=== PATIENT | female | born 1970 | race Caucasian/White ===

== ENCOUNTER 2024-05-21 11:28 | Emergency (ER) | payer BC ==
[~2024-05-21] VITALS: Ht 157.5 cm; Wt 74.8 kg
[2024-05-21 11:30] VITALS: BP 106/61; PULSE 70; RESP 16; TEMP 98.6
--- NOTE | 2024-05-21 11:49 | ERN ---
ED Note History of Present Illness Stated Complaint: RECTAL PAIN, POSSIBLY R/T DIVERTICULITIS Chief Complaint: Other Problems Time Seen by MD: 11:41 Dictation: PATIENT IS A 54-YEAR-OLD FEMALE COMING IN TODAY WITH COMPLAINTS LEFT LOWER QUADRANT AND RECTAL PAIN SHE HAS HAD FOR 4-5 MONTHS. NO FEVER NO CHILLS NO NAUSEA VOMITING. STATES SHE SAW HER HYDRAULIC DESIGN ENGINEER DOCTOR, DR. CHAVIRA WHO ORDERED A CT OF THE ABDOMEN ON 05/15 THAT DEMONSTRATED POSSIBLE PROCTITIS AND DIVERTICULAR DISEASE. SHE HAS NOT HEARD BACK FROM HER HYDRAULIC DESIGN ENGINEER DOCTOR AND NO PAIN MANAGEMENT WAS PRESCRIBED. SHE STATES SHE DOES USE DR. [facility] FROM [place] [facility] FOR GI ISSUES HOWEVER HAS NOT SEEN THEM RECENTLY Allergies: Coded Allergies: Penicillins (Unverified Allergy, Unknown, 05/21/24) acetaminophen (Unverified Allergy, Unknown, 05/21/24) propoxyphene (Unverified Allergy, Unknown, 05/21/24) Past Medical History Past Medical History: Diverticulitis, High Cholesterol, Heart Disease, Hypothyr oid Additional Past Medical Hx: ATRIAL TACHYCARDIA Surgical History: Hysterectomy, Other Surgical History Other: KNEE, SINUS History: Not Applicable RN Note Reviewed/Agreed w/PFSH: Yes Review of System Dictation CONSTITUTIONAL: NEGATIVE EXCEPT FOR HPI HEAD/FACE: NEGATIVE EXCEPT FOR HPI EENT: NEGATIVE EXCEPT FOR HPI RESPIRATORY: NEGATIVE EXCEPT FOR HPI GASTROINTESTINAL/ABDOMINAL: NEGATIVE EXCEPT FOR HPI LEFT LOWER QUADRANT/RECTAL PAIN GENITOURINARY: NEGATIVE EXCEPT FOR HPI MUSCULOSKELETAL: NEGATIVE EXCEPT FOR HPI INTEGUMENTARY: NEGATIVE EXCEPT FOR HPI NEUROLOGICAL/PSYCH: NEGATIVE EXCEPT FOR HPI HEMATOLOGIC/LYMPHATIC: NEGATIVE EXCEPT FOR HPI ALL SYSTEMS NEGATIVE, EXCEPT NOTED ABOVE. 13 POINT REVIEW OF SYSTEMS ASSESSED AND ALL NEGATIVE EXCEPT FOR ABOVE. Initial Vital Sign VS Vital Signs Date Time Temp Pulse Resp B/P (MAP) Pulse Ox O2 Delivery O2 Flow Rate FiO2 05/21/24 11:30 98.6 70 16 106/61 97 Room Air 0 Physical Exam Dictation VITAL SIGNS REVIEWED GENERAL APPEARANCE: ALERT, ORIENTED X 3, MODERATE ACUTE DISTRESS, WELL DEVELOPED, NOURISHED. HEAD AND FACE: NON-TRAUMATIC. EYES: PERRL, PINK CONJUNCTIVAS, EYELID NO TRAUMA, ANTERIOR CHAMBER WITH ARCUS SENILIS. EARS: PINNAS INTACT AND NO SIGNS OF TRAUMA OR ERYTHEMA EAR CANALS CLEAR AND NO DISCHARGE TM NO ERYTHEMA NOSE: NO DISCHARGE, NO BLEEDING. OROPHARYNX: MOUTH NORMAL, TONGUE PINK, PHARYNX CLEAR,NO ERYTHEMA, TONSILS NO EXUDATES, NO ABSCESSES NOTED, MUCOUS MEMBRANE MOIST NECK: SUPPLE, NON-TENDER, NO THYROMEGALY, NO MASSES, NO JVD, NO BRUITS BREAST:DEFERRED CHEST:NO TENDERNESS, NO CREPITUS, NO PARADOXICAL MOVEMENT, NO RETRACTIONS LUNGS:CLEAR, WELL-VENTILATED, SYMMETRIC, NO RALES, NO WHEEZING, NO RHONCHI, NO STRIDOR, GOOD BREATH SOUNDS BILATERALLY HEART: REGULAR RATE, REGULAR RHYTHM, NO MURMUR, NO GALLOPS VASCULAR: NO PERIPHERAL EDEMA, ABDOMEN: SOFT, POSITIVE BOWEL SOUNDS, NONDISTENDED, NO GUARDING, LEFT LOWER QUADRANT TENDERNESS, NO REBOUND, NO MASSES NO HEPATOMEGALY, NO SPLENOMEGALY, NO VIERA'S SIGN, NO HERNIAS. RECTAL: DEFERRED GENITAL: DEFERRED NEUROLOGICAL: NORMAL SPEECH, MOTOR FUNCTION INTACT, SENSORY FUNCTION INTACT MUSCULOSKELETAL: NECK NONTENDER, FULL RANGE OF MOTION, BACK NONTENDER, FULL RANGE OF MOTION, EXTREMITIES: NONTENDER, FULL RANGE OF MOTION SKIN: COLOR PINK, DRY, NO TURGOR, NO RASH, NO LACERATIONS, NO ABRASIONS, NO CONTUSIONS. LYMPHATIC: DEFERRED Results (Laboratory/Radiology) Laboratory/Radiology Laboratory Tests Test 05/21/24 12:18 05/21/24 12:20 White Blood Count 6.6 K/uL (4.8-10.8) Red Blood Count 3.75 MIL/uL (4.00-5.50) L Hemoglobin 10.6 g/dL (12.0-16.0) L Hematocrit 33.7 % (36-48) L Mean Corpuscular Volume 89.9 fL (79-99) Mean Corpuscular Hemoglobin 28.3 pg (27.0-33.0) Mean Corpuscular Hemoglobin Concent 31.5 g/dL (32.0-36.0) L Red Cell Distribution Width 12.7 % (11.0-15.5) Platelet Count 253 K/uL (130-400) Mean Platelet Volume 9.8 fL (7.5-10.5) Immature Granulocyte % (Auto) 0.2 % (0-1) Neutrophils (%) (Auto) 65.2 % (40.0-77.0) Lymphocytes (%) (Auto) 24.6 % (21.0-51.0) Monocytes (%) (Auto) 6.3 % (3.0-13.0) Eosinophils (%) (Auto) 2.9 % (0.0-8.0) Basophils (%) (Auto) 0.8 % (0.0-5.0) Neutrophils # (Auto) 4.3 K/uL (1.8-7.7) Lymphocytes # (Auto) 1.6 K/uL (1.0-4.8) Monocytes # (Auto) 0.4 K/uL (0.1-1.0) Eosinophils # (Auto) 0.19 K/uL (0.00-0.70) Basophils # (Auto) 0.05 K/uL (0.00-0.20) Absolute Immature Granulocyte (auto 0.01 K/uL (0-1) Nucleated Red Blood Cells 0.0 % (0.0-0.19) Sodium Level 143 mmol/L (136-145) Potassium Level 4.3 mmol/L (3.5-5.1) Chloride Level 105 mmol/L (101-111) Carbon Dioxide Level 32 mmol/L (21-32) Blood Urea Nitrogen 7 mg/dL (7-18) Creatinine 1.0 mg/dL (0.5-1.0) Glomerular Filtration Rate Calc 67 mL/min (>90) Random Glucose 113 mg/dL (70-105) H Total Calcium 9.1 mg/dL (8.5-10.1) Lipase 47 U/L (16-77) Urine Color LIGHT-YELLOW (YELLOW) Urine Appearance CLEAR (CLEAR) Urine pH 6.5 (5.0-8.0) Urine Specific [place] 1.010 (1.001-1.031) Urine Protein NEGATIVE mg/dL (NEGATIVE) Urine Glucose (UA) NEGATIVE mg/dL (NEGATIVE) Urine Ketones NEGATIVE mg/dL (NEGATIVE) Urine Occult Blood MODERATE (NEGATIVE) H Urine Nitrate NEGATIVE (NEGATIVE) Urine Bilirubin NEGATIVE mg/dL (NEGATIVE) Urine Urobilinogen 0.2 mg/dL (0.2-1.0) Urine Leukocyte Esterase NEGATIVE Lexi/uL Urine RBC 11-25 /HPF (0-1) H Urine WBC 2-5 /HPF (0-1) H Urine Squamous Epithelial Cells RARE /HPF (0-2) Urine Bacteria FEW /HPF (None Seen) CT ABDOMEN/PELVIS W/CONTRAST REASON: LEFT LOWER QUADRANT AND RECTAL PAIN, FOUR MONTHS COMPARISON: None. TECHNIQUE: Images are obtained from lung bases to the symphysis pubis following IV contrast, 100 cc Omnipaque 350. FINDINGS: Lung bases are clear. There are no focal liver lesions. There are normal-appearing kidneys.. Spleen and pancreas appear unremarkable. The gallbladder appears normal as well. Bowel loops appear unremarkable. This includes normal appearance of the appendix There is no evidence of free fluid or intraperitoneal air. There are no focal fluid collections. Aorta and retroperitoneum appear normal as do pelvic soft tissue structures. The anterior abdominal wall is intact. Osseous structures appear unremarkable. IMPRESSION: 1. Negative postcontrast CT abdomen and pelvis. Labs Reviewed?: Yes ED Course ED Course Orders Procedure Category Date Status Time Cbc With Differential LAB 05/21/24 Complete 11: Urinalysis Profile LAB 05/21/24 Complete 11:46 Ct Abdomen/Pelvis CT 05/21/24 Resulted W/Contrast 11:46 0.9%Nacl 1000ml (Ns PHA 05/21/24 Complete 1000ml) 12:00 Morphine 2mg Syg PHA 05/21/24 Complete (Morphine 2mg Syg) 12:00 Ondansetron 4mg Inj PHA 05/21/24 Complete (Zofran 4mg Inj) 12:00 Lipase LAB 05/21/24 Complete 11:46 Basic Metabolic Panel LAB 05/21/24 Complete 11:46 Iohexol (Omnipaque) PHA 05/21/24 Complete 13:08 Methylprednisolone PHA 05/21/24 Complete Succ 125mg (Solu-Medr 14:30 Ketorolac PHA 05/21/24 Verified Tromethamine 30mg/Ml 15:00 Current Medications Medications (Trade) Dose Ordered Sig/Mt Route PRN Reason Start Time Stop Time Status Last Admin Dose Admin Iohexol (Omnipaque) 35,000 mg STK-MED ONCE IV 05/21/24 13:08 05/21/24 13:08 DC Methylprednisolone Sodium Succinate (Solu-medROL 125MG) 125 mg ONCE ONCE IVP 05/21/24 14:30 05/21/24 14:31 DC 05/21/24 14:25 Morphine Sulfate (morPHINE 2MG SYG) 2 mg ONCE ONCE IVP 05/21/24 12:00 05/21/24 12:07 DC 05/21/24 13:09 Ondansetron HCl (zoFRAN 4MG INJ) 4 mg ONCE ONCE IVP 05/21/24 12:00 05/21/24 12:07 DC 05/21/24 13:01 Sodium Chloride 1,000 ml @ 0 mls/hr ONCE ONCE IV 05/21/24 12:00 05/21/24 12:07 DC 05/21/24 13:01 Vital Signs Date Time Temp Pulse Resp B/P (MAP) Pulse Ox O2 Delivery O2 Flow Rate FiO2 05/21/24 11:30 98.6 70 16 106/61 97 Room Air 0 1435, PATIENT STATES HER PAIN IS MARKEDLY REDUCED HOWEVER WOULD LIKE SOMETHING MORE BEFORE SHE GOES HOME SHE IS AWARE THAT THIS IS AN INFLAMMATORY PROCTITIS WE WILL BE TREATED WITH MESALAMINE AND HYDROCORTISONE SUPPOSITORIES AND WAS ADVISED TO SEE HER DOCTOR TESTED [facility] Medical Decision Making MDM MDM: DIFFERENTIAL DIAGNOSIS: DIVERTICULITIS/IBS/ULCERATIVE COLITIS/PROCTITIS/URINARY TRACT INFECTION/ELECTROLYTE IMBALANCE/DEHYDRATION RATIONALE: TESTS CONSIDERED AND ORDERED SECONDARY TO SHARED DECISION MAKING INCLUDE: RADIOLOGY/LABS PREVIOUS OUTSIDE RECORDS REVIEWED: OLD ER VISITS. REVIEWED RISK OF COMPLICATION AND/OR MORBIDITY OR MORTALITY OF PATIENT MANAGEMENT: NONE MEDICATIONS-PER MEDICATION RECONCILIATION SEE NURSE'S NOTES NEED FOR HOSPITALIZATION: PATIENT DOES NOT MEET CRITERIA FOR HOSPITALIZATION. NO NEED FOR EMERGENCY MAJOR/MINOR SURGERY: NO THERE ARE NO SOCIAL CONCERNS WITH THIS PATIENT. PRESCRIPTION DRUG MANAGEMENT MESALAMINE/HYDROCORTISONE SUPPOSITORIES/TYLENOL THREE PRESCRIPTIONS WILL INCLUDE SYMPTOMATIC CARE PATIENT'S PRIOR EXTERNAL MEDICAL RECORDS FROM OTHER ER VISITS WERE REVIEWED BY ME INDICATED. PRIOR TESTING AND RESULTS FROM PREVIOUS VISITS WERE REVIEWED. PRIOR TESTS WERE TAKEN INTO ACCOUNT WITH MEDICAL DECISION MAKING AND RESOURCE UTILIZATION, INDEPENDENT HISTORIAN/HISTORIANS WERE USED TO OBTAIN COMPLETE MEDICAL HISTORY. I INDEPENDENTLY INTERPRETED THE TEST THAT WERE PERFORMED, RESULTS WERE REVIEWED BY ME AND CONSIDERED FINDINGS ON RADIOLOGY IF ORDERED. MEDICAL MANAGEMENT AND EXAMINATION INTERPRETATION DISCUSSIONS WERE HAD BY ME WITH OTHER QUALIFIED HEALTHCARE PROFESSIONALS INDICATED FOR THE PATIENT'S CARE. DX & DISP Disposition: Discharge Departure Impression: Primary Impression: Acute proctitis Condition: Stable Scripts Ibuprofen (Ibuprofen) 800 Mg Tablet 800 MG PO Q6H PRN for PAIN, #30 TAB Prov: PING FLORES SUGAR GRINDER 05/21/24 Hydrocortisone Acetate (Hydrocortisone Acetate) 25 Mg Supp.rect 1 SUPP MA BID for 14 Days, #28 SUPP 0 Refills Prov: PING FLORES NP 05/21/24 Mesalamine (Mesalamine) 800 Mg Tablet.dr 1 TAB PO TID for 10 Days, #30 TAB 0 Refills Prov: PING FLORES NP 05/21/24 Additional Instructions: FOLLOW-UP WITH PRIMARY CARE PROVIDER IN 1 TO 2 DAYS. TAKE MEDICATIONS DIRECTED HERE IN THE EMERGENCY ROOM. OKAY TO CONTINUE HOME MEDICATIONS UNLESS OTHERWISE DISCUSSED DURING YOUR VISIT IN THE EMERGENCY ROOM TODAY. RETURN TO YOUR NEAREST EMERGENCY ROOM IF SYMPTOMS WORSEN OR IF THERE IS NO IMPROVEMENT. CALL 911 IF YOU NEED IMMEDIATE ASSISTANCE. TAKE TYLENOL OR MOTRIN [id number] NEEDED AND IF NO CONTRAINDICATIONS ARE PRESENT. INCREASE ORAL HYDRATION. A WOUND CULTURE OR URINE CULTURE WAS ORDERED HERE IN THE EMERGENCY ROOM DEPARTMENT PLEASE FOLLOW-UP WITH PRIMARY CARE PROVIDER AND ADVISE THEM TO GET REPEAT PORTS FROM OUR FACILITY. IF YOU HAD ANY JENNIFER WRAP/SPLINTS THAT WERE APPLIED HERE, PLEASE DO NOT REMOVE THEM UNTIL YOU SEE YOUR PRIMARY CARE OR SPECIALTY. TAKE HYDROCORTISONE SUPPOSITORIES DIRECTED UNTIL GONE. TAKE MESALAMINE DIRECTED FOR 10 DAYS DIRECTED. FOLLOW UP WITH YOUR DOCTOR AT [facility] OR CALL COLORECT[facility] SURGEON FOR AN APPOINTMENT. Referrals: LEE GENTILE MD Time of Disposition: 14:39 I have reviewed the case, and I agree with, Diagnosis and Plan PING FLORES NP May 21, 2024 11:49
[2024-05-21 12:27] LABS: BASOPHILS # (AUTO) 0.05 K/uL (0.00-0.20); BASOPHILS % (AUTO) 0.8 % (0.0-5.0); EOSINOPHILS # (AUTO) 0.19 K/uL (0.00-0.70); EOSINOPHILS % (AUTO) 2.9 % (0.0-8.0); HEMATOCRIT 33.7 % (36-48); IMMATURE GRANULOCYTE ABSOLUTE 0.01 K/uL (0-1); LYMPHOCYTES # (AUTO) 1.6 K/uL (1.0-4.8); LYMPHOCYTES % (AUTO) 24.6 % (21.0-51.0); MEAN CORPUSCULAR HEMOGLOBIN 28.3 pg (27.0-33.0); MEAN CORPUSCULAR HGB CONC 31.5 g/dL (32.0-36.0); MEAN CORPUSCULAR VOLUME 89.9 fL (79-99); MONOCYTES # (AUTO) 0.4 K/uL (0.1-1.0); MONOCYTES % (AUTO) 6.3 % (3.0-13.0); NEUTROPHILS # (AUTO) 4.3 K/uL (1.8-7.7); NEUTROPHILS % (AUTO) 65.2 % (40.0-77.0); PLATELET COUNT (AUTO) 253 K/uL (130-400); RED BLOOD CELL COUNT(AUTO) 3.75 MIL/uL (4.00-5.50); RED CELL DISTRIBUTION WIDTH 12.7 % (11.0-15.5); WHITE BLOOD COUNT (AUTO) 6.6 K/uL (4.8-10.8)
[2024-05-21 12:37] LABS: POTASSIUM 4.3 mmol/L (3.5-5.1)
[2024-05-21 12:55] LABS: APPEARANCE,URINE CLEAR (CLEAR); BILIRUBIN,URINE NEGATIVE (NEGATIVE); COLOR,URINE LIGHT-YELLOW (YELLOW); GLUCOSE, URINE (UA) NEGATIVE (NEGATIVE); KETONES,URINE NEGATIVE (NEGATIVE); LEUKOCYTE ESTERASE ,URINE NEGATIVE Leu/uL (NEGATIVE); NITRATE,URINE NEGATIVE (NEGATIVE); OCCULT BLOOD,URINE MODERATE (NEGATIVE); PH,URINE 6.5 (5.0-8.0); PROTEIN,URINE NEGATIVE (NEGATIVE); UROBILINOGEN,URINE 0.2 mg/dL (0.2-1.0)
[2024-05-21] MEDS: ondanSETRON 4MG INJ IVP ONE (13:01)
[2024-05-21] MEDS: 0.9%NACL 1000ML 1,000 ML IV ONE (13:01)
[2024-05-21] MEDS ORDERED: IOHEXOL 350 MG/ML 100ML INFUS..BTL IV ONE (13:08)
[2024-05-21] MEDS: morPHINE 2 MG SYG IVP ONE (13:09)
[2024-05-21 13:15] LABS: ADD UA MICROSCOPIC YES
[2024-05-21 13:18] LABS: BACTERIA,URINE FEW /HPF (None Seen); SQUAMOUS EPITHELIAL CELL,UR RARE /HPF (0-2)
--- NOTE | 2024-05-21 13:35 | HMCIMG ---
CT ABDOMEN/PELVIS W/CONTRAST REASON: LEFT LOWER QUADRANT AND RECTAL PAIN, FOUR MONTHS COMPARISON: None. TECHNIQUE: Images are obtained from lung bases to the symphysis pubis following IV contrast, 100 cc Omnipaque 350. FINDINGS: Lung bases are clear. There are no focal liver lesions. There are normal-appearing kidneys.. Spleen and pancreas appear unremarkable. The gallbladder appears normal as well. Bowel loops appear unremarkable. This includes normal appearance of the appendix There is no evidence of free fluid or intraperitoneal air. There are no focal fluid collections. Aorta and retroperitoneum appear normal as do pelvic soft tissue structures. The anterior abdominal wall is intact. Osseous structures appear unremarkable. IMPRESSION: 1. Negative postcontrast CT abdomen and pelvis. CT was performed with one or more following dose reduction techniques: automated exposure control, adjustment of the mA and kv according to patient's size, or use of a iterative reconstruction technique.
[2024-05-21] MEDS: Solu-medROL 125MG VIAL IVP ONE (14:25)
[2024-05-21] MEDS ORDERED: MESA800T9 PO (14:41)
[2024-05-21] MEDS ORDERED: HYDR25SU7 PR (14:41)
[2024-05-21] MEDS ORDERED: IBUP-2071 PO (14:41)
[2024-05-21] MEDS: ketOROlac 30MG VIAL (30MG/ML) IVP ONE (14:50)
== END 2024-05-21 15:04 | disposition home or self-care (01) ==
LOC: EDH 11:28
DX: K62.89 Other specified diseases of anus and rectum (principal); E03.9 Hypothyroidism, unspecified; E78.00 Pure hypercholesterolemia, unspecified; Z88.0 Allergy status to penicillin; Z90.710 Acquired absence of both cervix and uterus; Z98.890 Other specified postprocedural states
CPT/HCPCS: 99284; 74177; 96374; 96375; 96361; 80048; 83690; 85025; 81001; 36415; J2270; J7030; J2919; J2405; J1885; Q9967